=== PATIENT | female | born 1965 | race Caucasian/White ===

== ENCOUNTER 2017-04-19 08:13 | Day surgery (SDC) | payer OTHER ==
[~2017-04-19] VITALS: Ht 160 cm; Wt 74.3 kg
[2017-04-19 08:40] VITALS: Ht 160 cm; Wt 74.3 kg
[2017-04-19 08:53] VITALS: BP 144/74; PULSE 64; RESP 20
[2017-04-19 09:50] VITALS: BP 117/70; PULSE 60; RESP 12
[2017-04-19 09:51] VITALS: BP 117/70; PULSE 67; RESP 14
--- NOTE | 2017-04-27 05:20 | GILP ---
DATE OF PROCEDURE: 04/19/2017 PROCEDURE: Colonoscopy. SURGEON: Violette Ambrocio MD PREOP DIAGNOSIS: Screening colonoscopy. POSTOP DIAGNOSES: 1. Colonoscopy all the way to the cecum. 2. Poor prep, making the exam somewhat suboptimal. 3. Diverticulosis of the colon. 4. Internal hemorrhoids. INDICATION: Ms Fabienne Cat is a 52-year-old female patient who was scheduled for screening colonoscopy. The procedure and possible complications were well explained to the patient. She understood and consented to the procedure. DESCRIPTION OF PROCEDURE: Under influence of fentanyl and Versed, the colonoscope was carefully introduced into the rectum and under direct vision it was advanced all the way to the cecum. FINDINGS: The patient had poor prep making the exam somewhat suboptimal. She was noted to have diverticulosis of the colon and internal hemorrhoids. No gross neoplasm was identified. She tolerated the procedure very well. There is no complications from the procedure. At the end of procedure she was awake with stable vital signs and she was discharged under the care of her family. IMPRESSION: 1. Colonoscopy all the way to the cecum. 2. Poor prep, making the exam somewhat suboptimal. 3. Diverticulosis of the colon. 4. Internal hemorrhoids. PLAN: Because of the poor prep and suboptimal nature of the examination, would recommend next screening colonoscopy in 5 years. Dictated By: MD STEPHANIE Martinez/sabas/alice /Document#: [id number]
== END 2017-04-19 12:15 | disposition home or self-care (01) ==
LOC: GIL 08:13
PROVIDERS: ATTEND Internal Medicine Gastroenterology
DX: Z12.11 Encounter for screening for malignant neoplasm of colon (principal); K57.90 Diverticulosis of intestine, part unspecified, without perforation or abscess without bleeding; K64.8 Other hemorrhoids
CPT/HCPCS: 45378; Z7610

== ENCOUNTER 2017-05-30 05:56 | Day surgery (SDC) | payer OTHER ==
[~2017-05-30] VITALS: Ht 160 cm; Wt 75.2 kg
[2017-05-30 06:42] VITALS: Ht 160 cm; Wt 75.2 kg
[2017-05-30 07:02] VITALS: BP 126/68; PULSE 59; RESP 12
--- NOTE | 2017-05-30 07:34 | OPPN ---
Date/Time of Note Date/Time of Note DATE: 05/30/17 TIME: 07:30 Operative Report Preoperative Diagnosis Abdominal pain Postoperative Diagnosis Gastritis with erosions Superficial duodenal ulcers Operation/Procedure Performed Esophagogastroduodenoscopy and biopsy Provider: ELIZABET NEUMANN MD Anesthesia Type: moderate sedation Estimated blood loss: none Transfusion Required: no Specimens Gastric mucosal biopsy Grafts/Implants: none Complications: no ELIZABET NEUMANN MD May 30, 2017 07:34
[2017-05-30] MEDS ORDERED: MIDAZOLAM 1 MG/ML 2 ML INJ ONE (07:36)
[2017-05-30] MEDS ORDERED: FENTAnyl 50 MCG/ML VIAL ONE (07:37)
[2017-05-30 07:52] VITALS: BP 124/73; PULSE 66; RESP 14
--- NOTE | 2017-05-30 07:58 | GILP ---
DATE OF PROCEDURE: 05/30/2017 PROCEDURE PERFORMED: Esophagogastroduodenoscopy and biopsy. PREOPERATIVE DIAGNOSIS: Abdominal pain. POSTOPERATIVE DIAGNOSES: 1. Small hiatal hernia. 2. Gastroesophageal reflux disease. 3. Gastritis with erosions. 4. Gastric mucosal biopsies were taken for Helicobacter pylori test. 5. Superficial duodenal ulcers. INDICATION: Ms. Fabienne Cat is a 52-year-old female patient, who had upper abdominal pain not responding to therapy. The patient was scheduled for endoscopic examination for further evaluation. The procedure and possible complications were well explained to the patient. She understood and consented to the procedure. DESCRIPTION OF PROCEDURE: Under influence of fentanyl and Versed, the gastroscope was carefully introduced into the esophagus, and under direct vision, it was advanced to the stomach into the pylorus into the duodenal bulb, and descending duodenum. FINDINGS: Esophagus: Patient had a small hiatal hernia and gastroesophageal reflux disease. Stomach: She had gastritis with erosions. Gastric mucosal biopsies were taken for H pylori test. Duodenum: The patient had superficial duodenal bulb ulcers. She tolerated the procedure very well. There was no complication from the procedure. At the end of procedure, she was awake with stable vital signs and she was discharged home in the care of her family. IMPRESSION: Please see postop diagnoses. PLAN: 1. Omeprazole 40 mg in the morning. 2. Await H pylori test report. Dictated By: MD STEPHANIE Martinez/sabas/georgi /Document#: [id number]
== END 2017-05-30 12:03 | disposition home or self-care (01) ==
LOC: GIL 05:56
PROVIDERS: ATTEND Internal Medicine Gastroenterology
DX: B96.81 Helicobacter pylori [H. pylori] as the cause of diseases classified elsewhere (principal); K44.9 Diaphragmatic hernia without obstruction or gangrene; K21.9 Gastro-esophageal reflux disease without esophagitis; K29.60 Other gastritis without bleeding; K26.9 Duodenal ulcer, unspecified as acute or chronic, without hemorrhage or perforation
CPT/HCPCS: 43239; 84703; 87081; J2250; J3010; Z7610

== ENCOUNTER 2019-04-23 08:18 | Day surgery (SDC) | payer OTHER ==
[~2019-04-23] VITALS: Ht 160 cm; Wt 75.0 kg
[2019-04-23 09:10] VITALS: Ht 160 cm; Wt 75.0 kg
[2019-04-23 10:00] VITALS: BP 127/80; PULSE 59; RESP 16
[2019-04-23] MEDS ORDERED: FENTAnyl 50 MCG/ML VIAL ONE (10:46)
[2019-04-23] MEDS ORDERED: MIDAZOLAM 1 MG/ML 2 ML INJ ONE ×3 (10:46)
[2019-04-23 11:02] VITALS: BP 130/85; PULSE 58; RESP 18
== END 2019-04-23 11:13 | disposition home or self-care (01) ==
LOC: GIL 08:18
PROVIDERS: ATTEND Internal Medicine Gastroenterology
DX: K92.1 Melena (principal); K64.8 Other hemorrhoids; K57.30 Diverticulosis of large intestine without perforation or abscess without bleeding; K21.9 Gastro-esophageal reflux disease without esophagitis; K29.60 Other gastritis without bleeding
CPT/HCPCS: 43239; 45378; 84703; 88305; J2250; J3010; Z7610